=== PATIENT | female | born 1945 | race Caucasian/White ===

== ENCOUNTER → 2021-02-10 | Outpatient (CLI) | payer MEDICARE ==
[~2021-02-10] MED LIST: ASPIR 8181 MG PO; COREG 25MG TAB25 MG PO; COZAAR100 MG PO; ESOMEPRAZOLE MA20 MG PO; NORVASC10 MG PO; VYTORIN 10-401 EACH PO; ZOFRAN ODT 4 MG4 MG PO; ZOFRAN4 MG PO; ZOLOFT100 MG PO
[2021-02-11 10:16] LABS: CREATININE, URINE 124.9 mg/dL (Not Estab.)
== END ==
LOC: LAB 10:39
PROVIDERS: Internal Medicine Nephrology
DX: N18.30 Chronic kidney disease, stage 3 unspecified (principal)
CPT/HCPCS: 36415; 80048; 82043; 82570; 84156

== ENCOUNTER → 2021-06-30 | Outpatient (CLI) | payer MEDICARE ==
[2021-07-01 09:14] LABS: CREATININE, URINE 204.1 mg/dL (Not Estab.)
== END ==
LOC: LAB 11:14
PROVIDERS: Internal Medicine Nephrology
DX: N18.30 Chronic kidney disease, stage 3 unspecified (principal)
CPT/HCPCS: 36415; 80048; 82043; 82570; 84156

== ENCOUNTER → 2021-07-20 | Outpatient (CLI) | payer MEDICARE | LOC: LAB 10:00 | PROVIDERS: Internal Medicine Nephrology | DX: N17.9 Acute kidney failure, unspecified (principal) | CPT/HCPCS: 36415; 80048 ==

== ENCOUNTER → 2021-10-13 | Outpatient (CLI) | payer MEDICARE | LOC: LAB 11:06 | PROVIDERS: Internal Medicine Nephrology | DX: N17.9 Acute kidney failure, unspecified (principal); N18.30 Chronic kidney disease, stage 3 unspecified | CPT/HCPCS: 36415; 80048; 82043; 82570 ==